=== PATIENT | female | born 1970 | race African-American/Black ===

== ENCOUNTER 2020-12-17 07:22 | Emergency (ER) | payer SELFPAY ==
[~2020-12-17] VITALS: Ht 149.9 cm; Wt 65.8 kg
[2020-12-17 07:33] VITALS: BP_SYST 149
[2020-12-17] MEDS ORDERED: CARB15DR93 EACH EAR (07:57)
[2020-12-17 08:20] VITALS: BP_SYST 149
== END 2020-12-17 08:20 | disposition home or self-care (01) ==
LOC: SED 07:22
DX: H61.22 Impacted cerumen, left ear (principal); Z88.2 Allergy status to sulfonamides
CPT/HCPCS: 99282